=== PATIENT | male | born 1960 | race American Indian/Alaskan Native ===

== ENCOUNTER 2017-07-14 13:20 | Emergency (ER) | payer SELFPAY ==
[2017-07-14 13:48] LABS: Basophils % (Auto) 0.9 % (0.0-1.8); Eosinophils % (Auto) 3.2 % (0.0-4.3); Hematocrit 44.2 % (35.5-45.6); Hemoglobin 14.6 gm/dl (11.8-15.2); Mean Corpuscular HGB Conc 33 % (32-34); Mean Corpuscular Hemoglobin 31 pg (28-32); Mean Corpuscular Volume 92 fl (84-94); Platelet Count 230 K/mm3 (140-440); Red Blood Count 4.78 M/mm3 (3.65-5.03); Red Cell Distribution Width 13.6 % (13.2-15.2); White Blood Count 4.7 K/mm3 (4.5-11.0)
[2017-07-14 14:31] LABS: Alanine Aminotransferase 19 units/L (7-56); Albumin 4.2 g/dL (3.9-5); Albumin/Globulin Ratio 1.4 %; Alkaline Phosphatase 59 units/L (35-129); Anion Gap 15 mmol/L; BUN/Creatinine Ratio 16; Blood Urea Nitrogen 13 mg/dL (9-20); Calcium 9.3 mg/dL (8.4-10.2); Carbon Dioxide 27 mmol/L (22-30); Chloride 103.3 mmol/L (98-107); Glucose 102 mg/dL (75-100); Lipase 125 units/L (13-60); Potassium 4.1 mmol/L (3.6-5.0); Sodium 141 mmol/L (137-145); Total Protein 7.1 g/dL (6.3-8.2)
[2017-07-14 14:42] LABS: Bilirubin,Urine NEG (Negative); Blood,Urine NEG (Negative); Ketones,Urine NEG (Negative); Leukocyte Esterase,Urine NEG (Negative); Nitrite,Urine NEG (Negative); Protein,Urine <15 mg/dL mg/dL (Negative); Urobilinogen,Urine < 2.0 mg/dL (<2.0)
[2017-07-14 16:10] VITALS: BP 150/97
--- NOTE | 2017-07-14 17:15 | Emergency Department Report ---
ED Abdominal Pain HPI - General Chief Complaint: Abdominal Pain Stated Complaint: STOMACH VIRUS Time Seen by Provider: 07/14/17 17:02 Source: patient Mode of arrival: Ambulatory Limitations: No Limitations - History of Present Illness Initial Comments: 56-year-old male with complaint of abdominal pain that started yesterday. Patient states she's had worsening abdominal pain since yesterday. Describes pain as discomfort in the middle of his abdomen. No fevers chills. Some nausea but no vomiting. He did have diarrhea for the last couple days. He feels like he maybe eating something bad. He also states that he drinks 2 beers daily. MD Complaint: abdominal pain -: hour(s) (24) Location: epigastric Radiation: none Severity: mild Severity scale (0 -10): 0 Quality: cramping Consistency: constant Associated Symptoms: nausea, diarrhea. denies: vomiting - Related Data Previous Rx's Medication Instructions Recorded Last Taken Type Famotidine [Pepcid] 20 mg PO BID #60 tablet 07/14/17 Unknown Rx HYDROcodone/APAP 5-325 [Rowe 1 each PO Q6HR PRN #10 tablet 07/14/17 Unknown Rx 5-325 mg TAB] Ondansetron [Zofran Odt] 4 mg PO Q6HR #10 tab.rapdis 07/14/17 Unknown Rx Allergies Allergy/AdvReac Type Severity Reaction Status Date / Time No Known Allergies Allergy Verified 07/14/17 13:27 ED Review of Systems ROS: Stated complaint: STOMACH VIRUS Other details as noted in HPI Comment: All other systems reviewed and negative Respiratory: denies: cough, orthopnea, shortness of breath, SOB with exertion Gastrointestinal: abdominal pain, nausea, diarrhea. denies: vomiting Neurological: denies: headache, weakness ED Past Medical Hx - Past Medical History Previous Medical History?: No - Surgical History Past Surgical History?: No - Social History Smoking Status: Never Smoker Substance Use Type: Alcohol - Medications Home Medications: Home Medications Medication Instructions Recorded Confirmed Last Taken Type Famotidine [Pepcid] 20 mg PO BID #60 tablet 07/14/17 Unknown Rx HYDROcodone/APAP 5-325 [Rowe 1 each PO Q6HR PRN #10 tablet 07/14/17 Unknown Rx 5-325 mg TAB] Ondansetron [Zofran Odt] 4 mg PO Q6HR #10 tab.rapdis 07/14/17 Unknown Rx ED Physical Exam - General Limitations: No Limitations General appearance: alert, in no apparent distress - Head Head exam: Present: atraumatic, normocephalic - Eye Eye exam: Present: normal appearance. Absent: scleral icterus, conjunctival injection - ENT ENT exam: Present: mucous membranes moist - Neck Neck exam: Present: normal inspection - Respiratory Respiratory exam: Present: normal lung sounds bilaterally. Absent: respiratory distress, wheezes - Cardiovascular Cardiovascular Exam: Present: regular rate, normal rhythm. Absent: systolic murmur, diastolic murmur, rubs, gallop - GI/Abdominal GI/Abdominal exam: Present: soft, tenderness (mild epigastric), normal bowel sounds. Absent: distended, guarding, rebound - Rectal Rectal exam: Present: deferred - Extremities Exam Extremities exam: Present: normal inspection - Back Exam Back exam: Present: normal inspection - Neurological Exam Neurological exam: Present: alert, oriented X3 - Psychiatric Psychiatric exam: Present: normal affect, normal mood - Skin Skin exam: Present: warm, dry, intact, normal color. Absent: rash ED Course Vital Signs 07/14/17 07/14/17 07/14/17 13:27 16:09 16:13 Temperature 97.8 F 98.5 F Pulse Rate 82 60 Respiratory 16 18 18 Rate Blood Pressure 137/86 Blood Pressure 150/97 [Left] O2 Sat by Pulse 99 100 100 Oximetry ED Medical Decision Making - Lab Data Result diagrams: 07/14/17 13:39 07/14/17 13:39 Laboratory Results - last 24 hr 07/14/17 07/14/17 07/14/17 13:39 13:39 14:04 WBC 4.7 RBC 4.78 Hgb 14.6 Hct 44.2 MCV 92 MCH 31 MCHC 33 RDW 13.6 Plt Count 230 Lymph % (Auto) 35.1 H Catron % (Auto) 10.1 H Eos % (Auto) 3.2 Baso % (Auto) 0.9 Lymph # 1.6 Catron # 0.5 Eos # 0.1 Baso # 0.0 Seg Neutrophils % 50.7 Seg Neutrophils # 2.4 Sodium 141 Potassium 4.1 Chloride 103.3 Carbon Dioxide 27 Anion Gap 15 BUN 13 Creatinine 0.8 Estimated GFR > 60 BUN/Creatinine Ratio 16 Glucose 102 H Calcium 9.3 Total Bilirubin 0.70 AST 21 ALT 19 Alkaline Phosphatase 59 Total Protein 7.1 Albumin 4.2 Albumin/Globulin Ratio 1.4 Lipase 125 H Urine Color Straw Urine Turbidity Clear Urine pH 6.0 Ur Specific Elco 1.004 Urine Protein <15 mg/dl Urine Glucose (UA) Neg Urine Ketones Neg Urine Blood Neg Urine Nitrite Neg Urine Bilirubin Neg Urine Urobilinogen < 2.0 Ur Leukocyte Esterase Neg Urine WBC (Auto) 1.0 Urine RBC (Auto) 1.0 U Epithel Cells (Auto) < 1.0 - Medical Decision Making 56-year-old male here with complaint of epigastric abdominal pain and diarrhea. Patient states that he's had this pain for the last 24 hours. He does drink alcohol on a regular basis. His lipase is slightly elevated. His clinical exam shows mild tenderness with mild voluntary guarding but no rebound and he has a nonsurgical abdomen. I offered the patient an ultrasound of his right upper quadrant which she declined and states that he wants to go home. He was able tolerate by mouth without difficulty. Plan to discharge the patient home with oral pain medications no meds N referral to gastroenterology for outpatient ultrasound. I counseled the patient and he needs to return for further evaluation should his pain worse or he spikes a fever. Portions of this chart were dictated with dictation software. There may be dictation errors contained within this note. Critical care attestation.: If time is entered above; I have spent that time in minutes in the direct care of this critically ill patient, excluding procedure time. ED Disposition Clinical Impression: Abdominal pain, Pancreatitis Disposition: DC- TO HOME OR SELFCARE Is pt being admited?: No Condition: Stable Instructions: Pancreatitis (ED) Prescriptions: Famotidine [Pepcid] 20 mg PO BID #60 tablet HYDROcodone/APAP 5-325 [Rowe 5-325 mg TAB] 1 each PO Q6HR PRN #10 tablet PRN Reason: Pain Ondansetron [Zofran Odt] 4 mg PO Q6HR #10 tab.rapdis Referrals: PRIMARY CARE, [Primary Care Provider] - 3-5 Days
== END 2017-07-14 17:28 | disposition home or self-care (01) ==
LOC: ED 13:20
DX: K85.90 Acute pancreatitis without necrosis or infection, unspecified (principal); R10.13 Epigastric pain
CPT/HCPCS: 36415; 80053; 81001; 83690; 85025; 99283

== ENCOUNTER 2021-02-12 10:20 | Emergency (ER) | payer OTHER ==
[2021-02-12 10:27] VITALS: BP 142/94
--- NOTE | 2021-02-12 12:14 | Emergency Department Report ---
ED Back Pain/Injury HPI - General Chief Complaint: Back Pain/Injury Stated Complaint: BACK PAIN Time Seen by Provider: 02/12/21 11:46 Source: patient Limitations: No Limitations - History of Present Illness Initial Comments: Patient is a pleasant 60-year-old -[place] male that comes to the emergency room today complaining of lumbar back pain. He has had the pain since Wednesday when he was at work and he was picking up objects. Patient did not fall. He denies any incontinence of bowel or bladder. He denies any direct trauma or fall. Patient denies fever or chills. He denies the pain waking him up at night. He denies any abdominal pain. Patient states that his back hurts today so he did not go to work. MD Complaint: back pain -: Gradual, days(s) Similar Symptoms Previously: No Place: work Radiation: none Severity: mild Quality: aching Consistency: intermittent Improves With: immobilization Worsens With: movement Context: while lifting Associated Symptoms: denies other symptoms - Related Data Previous Rx's Medication Instructions Recorded Last Taken Type Cyclobenzaprine [Flexeril] 10 mg PO TID PRN #10 tablet 02/12/21 Unknown Rx Ibuprofen [Motrin] 800 mg PO Q8HR PRN #30 tablet 02/12/21 Unknown Rx predniSONE [Deltasone] 20 mg PO DAILY #5 tablet 02/12/21 Unknown Rx Allergies Allergy/AdvReac Type Severity Reaction Status Date / Time No Known Allergies Allergy Verified 07/14/17 13:27 ED Review of Systems ROS: Stated complaint: BACK PAIN Other details as noted in HPI Comment: All other systems reviewed and negative ED Past Medical Hx - Past Medical History Previous Medical History?: No - Surgical History Past Surgical History?: No - Family History Family history: no significant - Social History Smoking Status: Never Smoker - Medications Home Medications: Home Medications Medication Instructions Recorded Confirmed Last Taken Type Cyclobenzaprine [Flexeril] 10 mg PO TID PRN #10 tablet 02/12/21 Unknown Rx Ibuprofen [Motrin] 800 mg PO Q8HR PRN #30 tablet 02/12/21 Unknown Rx predniSONE [Deltasone] 20 mg PO DAILY #5 tablet 02/12/21 Unknown Rx ED Physical Exam - General Limitations: No Limitations General appearance: alert, in no apparent distress - Head Head exam: Present: atraumatic, normocephalic - Eye Eye exam: Present: normal appearance - ENT ENT exam: Present: mucous membranes moist - Neck Neck exam: Present: normal inspection - Respiratory Respiratory exam: Present: normal lung sounds bilaterally. Absent: respiratory distress - Cardiovascular Cardiovascular Exam: Present: regular rate, normal rhythm. Absent: systolic murmur, diastolic murmur, rubs, gallop - GI/Abdominal GI/Abdominal exam: Present: soft, normal bowel sounds - Rectal Rectal exam: Present: deferred - Extremities Exam Extremities exam: Present: normal inspection - Back Exam Back exam: Present: normal inspection - Neurological Exam Neurological exam: Present: alert, oriented X3 - Psychiatric Psychiatric exam: Present: normal affect, normal mood - Skin Skin exam: Present: warm, dry, intact, normal color. Absent: rash ED Course Vital Signs 02/12/21 02/12/21 10:26 12:40 Temperature 98.3 F Pulse Rate 75 Respiratory 18 20 Rate Blood Pressure 142/94 O2 Sat by Pulse 100 Oximetry ED Medical Decision Making - Medical Decision Making There is no spine tenderness. Patient has paraspinal muscle spasm bilaterally at the level of the lumbar spine Patient is neurologically intact with no focal deficit. He has had no bowel or bladder incontinence. No other signs or symptoms of cauda equina. Patient is ambulatory nontoxic and [id number] on exam in [facility]. Patient medicated for pain. Patient ambulated bleeding without difficulty. Patient requesting a work note. Patient being discharged home with discharge plan of care including medications, follow-up and activity instructions. He verbalizes understanding. Vital Signs 02/12/21 02/12/21 10:26 12:40 Temperature 98.3 F Pulse Rate 75 Respiratory 18 20 Rate Blood Pressure 142/94 O2 Sat by Pulse 100 Oximetry - Differential Diagnosis back spasm Critical care attestation.: If time is entered above; I have spent that time in minutes in the direct care of this critically ill patient, excluding procedure time. ED Disposition Clinical Impression: Back strain, Lumbar back pain Disposition: - TO HOME OR SELFCARE Is pt being admited?: No Does the pt Need Aspirin: No Condition: Stable Instructions: Muscle Strain, [id number] Additional Instructions: WARM BATHS MEDS ORDERED FOLLOW UP WITH PCP NEXT WEEK REFERRAL BELOW Prescriptions: predniSONE [Deltasone] 20 mg PO DAILY #5 tablet Cyclobenzaprine [Flexeril] 10 mg PO TID PRN #10 tablet PRN Reason: Muscle Spasm Ibuprofen [Motrin] 800 mg PO Q8HR PRN #30 tablet PRN Reason: Pain, Moderate (4-6) Referrals: LON SIMS MD [Staff Physician] - 3-5 Days Forms: Work/School Release Form(ED) Time of Disposition: 12:13
[2021-02-12] MEDS ORDERED: predniSONE 20 MG TAB PO ONE (12:15)
[2021-02-12] MEDS ORDERED: IBUPROFEN 800 MG TAB PO ONE (12:15)
[2021-02-12] MEDS ORDERED: CYCLOBENZAPRINE 10 MG TAB PO ONE (12:15)
== END 2021-02-12 12:54 | disposition home or self-care (01) ==
LOC: ED 10:20
DX: S39.012A Strain of muscle, fascia and tendon of lower back, initial encounter (principal); Z79.899 Other long term (current) drug therapy; X58.XXXA Exposure to other specified factors, initial encounter; Y93.89 Activity, other specified; Y92.89 Other specified places as the place of occurrence of the external cause; Y99.0 Civilian activity done for income or pay
CPT/HCPCS: 99282; J7512